=== PATIENT | female | born 1980 | race Caucasian/White ===

== ENCOUNTER 2016-06-02 13:56 | Emergency (ER) | payer MEDICAID ==
[2016-06-02] MEDS ORDERED: ASPIRIN 81 MG CHEW TAB ONE (14:07)
[2016-06-02] MEDS ORDERED: KETOROLAC 30 MG/ML VIAL ONE (15:37)
== END 2016-06-02 15:52 | disposition home or self-care (01) ==
LOC: ER 13:56
CPT/HCPCS: 71010; 93005; 96374

== ENCOUNTER 2016-06-24 18:27 | Emergency (ER) | payer MEDICAID | END 2016-06-24 21:52 | disposition home or self-care (01) | LOC: ER 18:27 | DX: R07.2 Precordial pain (principal) | CPT/HCPCS: 36415; 71020; 84484; 85379; 93005 ==